=== PATIENT | female | born 1990 ===

== ENCOUNTER 2020-04-06 09:27 | Outpatient (REF) | payer OTHER, SELFPAY ==
[2020-04-06 09:50] LABS: COVID-19 Test Negative (Negative)
== END 2020-04-06 09:28 | disposition home or self-care (01) ==
LOC: HO.EMPCOV 09:27
PROVIDERS: PCP Internal Medicine; Visit Provider Internal Medicine
DX: Z20.828 Contact with and (suspected) exposure to other viral communicable diseases (principal)
CPT/HCPCS: 87635; C9803

== ENCOUNTER 2020-05-24 09:27 | Outpatient (REF) | payer OTHER, SELFPAY ==
[2020-05-24 10:05] LABS: COVID-19 Test Negative (Negative)
== END 2020-05-24 09:28 | disposition home or self-care (01) ==
LOC: HO.EMPCOV 09:27
PROVIDERS: Visit Provider Internal Medicine
DX: Z20.828 Contact with and (suspected) exposure to other viral communicable diseases (principal)
CPT/HCPCS: 87635; C9803

== ENCOUNTER 2020-06-04 09:16 | Outpatient (REF) | payer OTHER, SELFPAY ==
[2020-06-04 09:30] LABS: COVID-19 Test Positive (Negative); IDNOW Serial# 55D5AD1C
== END 2020-06-04 09:17 | disposition home or self-care (01) ==
LOC: HO.EMPCOV 09:16
PROVIDERS: Visit Provider Internal Medicine
DX: Z20.822 Contact with and (suspected) exposure to COVID-19 (principal)
CPT/HCPCS: 36415; 87635; C9803

== ENCOUNTER 2020-10-28 09:06 | Outpatient (REF) | payer OTHER, SELFPAY ==
[2020-10-29 08:58] LABS: COVID-19 Test Negative (Negative)
== END 2020-10-28 09:07 | disposition home or self-care (01) ==
LOC: HO.LAB 09:06
PROVIDERS: Visit Provider Internal Medicine
DX: Z20.822 Contact with and (suspected) exposure to COVID-19 (principal)
CPT/HCPCS: 36415; 87635

== ENCOUNTER 2021-01-31 11:23 | Outpatient (REF) | payer OTHER, SELFPAY ==
[2021-01-31 15:51] LABS: CT PCR NOT DETECTED (Not Detect.); NG PCR NOT DETECTED (Not Detect.)
[2021-02-01 11:29] LABS: BV Int Neg Control Negative (Negative); BV Int Pos Control Positive (Positive)
[2021-02-09 07:27] LABS: HPV 16 RNA NOT DETECTED (NOT DETECTED); HPV mRNA E6/E7 rflx Detected (Not Detected)
== END 2021-01-31 11:24 | disposition home or self-care (01) ==
LOC: HO.LAB 11:23
PROVIDERS: PCP Internal Medicine; Visit Provider Obstetrics & Gynecology
DX: Z01.411 Encounter for gynecological examination (general) (routine) with abnormal findings (principal); Z11.3 Encounter for screening for infections with a predominantly sexual mode of transmission; D06.9 Carcinoma in situ of cervix, unspecified; N76.0 Acute vaginitis; B96.89 Other specified bacterial agents as the cause of diseases classified elsewhere
CPT/HCPCS: 87480; 87491; 87510; 87591; 87624; 87625; 87660; 88142

== ENCOUNTER 2021-05-09 14:17 | Outpatient (REF) | payer OTHER, SELFPAY ==
[2021-05-09 15:09] LABS: Influenza A PCR NEGATIVE (Negative); Influenza B PCR NEGATIVE (Negative); Resp Syncy Virus RNA Qual PCR NEGATIVE (Negative); SARS COV2 PCR INHOUSE NEGATIVE (Negative)
== END 2021-05-09 14:18 | disposition home or self-care (01) ==
LOC: HO.LNP 14:17
PROVIDERS: Visit Provider Physician Assistant
DX: R09.89 Other specified symptoms and signs involving the circulatory and respiratory systems (principal); H66.90 Otitis media, unspecified, unspecified ear; Z20.822 Contact with and (suspected) exposure to COVID-19
CPT/HCPCS: 0241U

== ENCOUNTER 2021-05-28 09:10 | Outpatient (REF) | payer OTHER, SELFPAY ==
[2021-05-28 11:37] LABS: Binax Internal Control QC Valid; Binax Lot number: 9864; Binax Now Covid-19 Ag Negative (Negative)
== END 2021-05-28 09:11 | disposition home or self-care (01) ==
LOC: HO.LAB 09:10
PROVIDERS: Visit Provider Internal Medicine
DX: Z20.822 Contact with and (suspected) exposure to COVID-19 (principal)
CPT/HCPCS: 36415; C9803

== ENCOUNTER 2021-06-13 09:36 | Outpatient (REF) | payer OTHER, SELFPAY | END 2021-06-13 09:37 | disposition home or self-care (01) | LOC: HO.LAB 09:36 | PROVIDERS: PCP Internal Medicine; Visit Provider Obstetrics & Gynecology | DX: D06.9 Carcinoma in situ of cervix, unspecified (principal) | CPT/HCPCS: 57454; 88305; 88341; 88342; 88360 ==

== ENCOUNTER 2021-07-10 09:19 | Day surgery (SDC) | payer OTHER, SELFPAY ==
--- NOTE | 2021-07-09 11:38 | HO.ANESPROP2 ---
Documented by User: Madelyn Lopez NP 07/09/21 11:38 HPI - Anesthesia Eval Consult details Narrative: 31yo F for LEEP Cone with Post Cone ECC PMFSH Active Problems Active Problems: All Active Problems (Updated 05/09/21 @ 11:25 by Joanne Kelly PA-C) Otitis media (Acute) Bacterial vaginosis (Acute) TASH III (cervical intraepithelial neoplasia grade III) with severe dysplasia (Acute) Social History Social History Alcohol intake: current Patient Tobacco Use Status: Former Tobacco user Use of substances other than those prescribed or required for medical reasons: No Are you DNR?: No Advance Directives: No Advance Directives Information Provided: Yes Recently lost weight without trying: No Nutrition Risks: No Nutritional Risk Meds Allergies Allergy/AdvReac Type Severity Reaction Status Date / Time chlorpheniramine Allergy Unknown HIVES Verified 05/09/21 11:03 [From TYLENOL ALLERGY SINUS CON PACK] diphenhydramine Allergy Unknown HIVES Verified 05/09/21 11:03 [From TYLENOL ALLERGY SINUS CON PACK] From TYLENOL ALLERGY SINUS Allergy Unknown HIVES Uncoded 02/09/20 17:41 CON PACK Tylenol Sinus Allergy Unknown hives Uncoded 08/02/19 00:00 Home Medications Medication Instructions Recorded Confirmed Last Taken Type levonorgestrel 20 mcg/24 hours (7 INTRAUTERINE 01/31/21 Unknown History yrs) 52 mg intrauterine device (Mirena) acetaminophen 325 mg tablet 325 mg PO QID PRN 07/10/21 07/10/21 07/10/21 History (Tylenol) Exam Exam Date and Time: July 09, [id number] Assessment and Plan Assessment Anesthesia Assessment: Chart Reviewed Documented by User: Kathy Farah MD 07/10/21 10:28 PMFSH Past Medical History Functional capacity: bed bound Surgical History History of Problems with Anesthesia: No Social History Social History Alcohol intake: current Patient Tobacco Use Status: Former Tobacco user Use of substances other than those prescribed or required for medical reasons: No Are you DNR?: No Advance Directives: No Advance Directives Information Provided: Yes Recently lost weight without trying: No Nutrition Risks: No Nutritional Risk Meds Allergies Allergy/AdvReac Type Severity Reaction Status Date / Time chlorpheniramine Allergy Unknown HIVES Verified 05/09/21 11:03 [From TYLENOL ALLERGY SINUS CON PACK] diphenhydramine Allergy Unknown HIVES Verified 05/09/21 11:03 [From TYLENOL ALLERGY SINUS CON PACK] From TYLENOL ALLERGY SINUS Allergy Unknown HIVES Uncoded 02/09/20 17:41 CON PACK Tylenol Sinus Allergy Unknown hives Uncoded 08/02/19 00:00 Home Medications Medication Instructions Recorded Confirmed Last Taken Type levonorgestrel 20 mcg/24 hours (7 INTRAUTERINE 01/31/21 Unknown History yrs) 52 mg intrauterine device (Mirena) acetaminophen 325 mg tablet 325 mg PO QID PRN 07/10/21 07/10/21 07/10/21 History (Tylenol) Exam Airway Mallampati Class: II TM Dist: >3cm Neck ROM: Full Loose/Missing/Broken Teeth: No Heart: RRR Lungs: CTA Assessment and Plan Final Anesthetic Review History of Problems with Anesthesia: No NPO: Yes ASA Class: II Final Preanesthetic Review: Meds/Allgs Chart Reviewed, Consent Obtained/Reviewed and Anes Risks/Benef Reviewed Patient Risk: Low Procedure Risk: Low Anesthetic Plan Anesthetic Plan: GA Disposition: Standard PACU
[2021-07-10] VITALS (7 sets, daily range): BP systolic 95–105; BP diastolic 50–66; PULSE 54–83; RESP 16–18; TEMP 36.5–36.8; O2SAT 96–100; BMI 39.9
[2021-07-10 09:53] LABS: UPreg QC Valid YES; Urine Pregnancy NEGATIVE (NEGATIVE)
[2021-07-10] MEDS: Lactated Ringers 1,000 ML 100 ML IVCONT (10:06)
--- NOTE | 2021-07-10 11:10 | MHC.SHP ---
Pre-Procedural Eval Section A Date of Service: 07/10/21 The patient is an INPATIENT: No Changes since office visit: No Cold of Flu in the past 2 weeks, No New Medical Problems, No Changes in Medication and No Patient answered all questions The History & Physical has been completed within 30 days and I have reviewed it.: Yes Section B Chief Complaint: C1N3 Allergies: Allergies Allergy/AdvReac Type Severity Reaction Status Date / Time chlorpheniramine Allergy Unknown HIVES Verified 05/09/21 11:03 [From TYLENOL ALLERGY SINUS CON PACK] diphenhydramine Allergy Unknown HIVES Verified 05/09/21 11:03 [From TYLENOL ALLERGY SINUS CON PACK] From TYLENOL ALLERGY SINUS Allergy Unknown HIVES Uncoded 02/09/20 17:41 CON PACK Tylenol Sinus Allergy Unknown hives Uncoded 08/02/19 00:00 Plan Diagnosis/Plan: Unchanged I have reviewed the history and physical and performed a pertinent physical examination on my patient. No changes have occurred unless specified.
--- NOTE | 2021-07-10 11:41 | P.BOP_ITS ---
Brief Operative Note Date of Service: 07/10/21 Pre-op diagnosis: TASH 3 Post-op diagnosis: same Procedure: LEEP CONE with post CONE ECC Surgeon: Mirza Pemberton MD Anesthesia: MAC, local and other (Paracervical block) Was an Team Primary Care Physician used for this Procedure?: No Estimated blood loss (mL): 0 Pathology: other (Ant+post Cerv lip, Endocx, Post cone ECC) Condition: stable Disposition: other (Home)
--- NOTE | 2021-07-10 11:42 | W.PM.OPN ---
Operative Note Operative Note Date of Service: 07/10/21 Narrative: Preop diagnosis: TASH 3 Operation: LEEP Cone with post cone ECC Post op diagnosis: same Anesthesia: paracervical block, MAC Complications: none Pathology: Anterior and Posterior cervical lip with endocervix & post cone ECC QBL: minimal Procedure: The patient was put in the dorsal lithotomy position, was prepped and draped in the usual sterile fashion. A sterile speculum was inserted inside the patient vagina. Using Lugol solution the cervix with Dyed with Lugol solution to identifiy the abnormal demarcating line. 10 cc of Marcaine0.5% with epinephrine were given at 2,4 , 8, and 10 o'clock. Using a medium-size loop wire, the anterior cervical lip was excised followed by the posterior cervical lip and endocervix, post cone ECC was done afterwards. Hemostasis was assured using cautery and Monsel solution. All instruments were taken out of the patient's vaginal cavity. the patient tolerated the procedure well and was discharged home with the following instructions: call if temperature is above 100.4, vaginal bleeding, abdominal pain or nausea or vomiting. Follow-up in the office in 2 weeks for postop visit
[2021-07-10] MEDS: oxyCODONE HCl Immed Release 5 MG TABLET PO (12:44)
== END 2021-07-10 13:25 | disposition home or self-care (01) ==
PROVIDERS: Nurse Practitioner; PCP Internal Medicine; Visit Provider Obstetrics & Gynecology
PROC: 0UBC7ZZ Excision of Cervix, Via Natural or Artificial Opening (ICD-10-PCS; CPT 57522; principal; 2021-07-10 11:00)
DX: D06.9 Carcinoma in situ of cervix, unspecified (principal); Z79.899 Other long term (current) drug therapy; Z88.8 Allergy status to other drugs, medicaments and biological substances; Z87.891 Personal history of nicotine dependence
CPT/HCPCS: 57522; 81025; 88305; 88307; 88342; 88360; J1100; J2250; J2405; J3010

== ENCOUNTER → 2021-07-16 11:30 | Outpatient (BNVA) | payer OTHER, SELFPAY | PROVIDERS: PCP Internal Medicine; Visit Provider Obstetrics & Gynecology ==

== ENCOUNTER → 2021-07-29 12:44 | Outpatient (BNVA) | payer OTHER, SELFPAY | PROVIDERS: Visit Provider Obstetrics & Gynecology ==

== ENCOUNTER → 2021-08-01 15:40 | Outpatient (BNVA) | payer OTHER, SELFPAY | PROVIDERS: Visit Provider Obstetrics & Gynecology ==

== ENCOUNTER → 2021-08-20 11:56 | Outpatient (BNVA) | payer OTHER, SELFPAY | PROVIDERS: PCP Internal Medicine; Visit Provider Obstetrics & Gynecology | DX: D06.9 Carcinoma in situ of cervix, unspecified (principal) ==

== ENCOUNTER 2021-08-23 10:40 | Day surgery (SDC) | payer OTHER, SELFPAY ==
[2021-08-19 10:46] VITALS: BMI 39.9
--- NOTE | 2021-08-21 13:44 | HO.ANESPROP2 ---
Documented by User: Madelyn Lopez NP 08/21/21 13:46 HPI - Anesthesia Eval Consult details Narrative: 31yo F for LEEP s/p Leep 06/2021 with GA-LMA 4 [facility] Active Problems Active Problems: All Active Problems (Updated 05/09/21 @ 11:25 by Joanne Kelly PA-C) Otitis media (Acute) Bacterial vaginosis (Acute) TASH III (cervical intraepithelial neoplasia grade III) with severe dysplasia (Acute) Surgical History History of Problems with Anesthesia: No Social History Social History Alcohol intake: current Alcohol intake frequency: holidays/special occasions only Patient Tobacco Use Status: Never used Tobacco Use of substances other than those prescribed or required for medical reasons: Yes Substance Use Type Other:: quit 1 year ago Are you DNR?: No Advance Directives: No Advance Directives Information Provided: Yes Recently lost weight without trying: No Patient : No (ucg negative) Meds Allergies Allergy/AdvReac Type Severity Reaction Status Date / Time chlorpheniramine Allergy Unknown HIVES Verified 05/09/21 11:03 [From TYLENOL ALLERGY SINUS CON PACK] diphenhydramine Allergy Unknown HIVES Verified 05/09/21 11:03 [From TYLENOL ALLERGY SINUS CON PACK] From TYLENOL ALLERGY SINUS Allergy Unknown HIVES Uncoded 02/09/20 17:41 CON PACK Tylenol Sinus Allergy Unknown hives Uncoded 08/02/19 00:00 Home Medications Medication Instructions Recorded Confirmed Last Taken Type levonorgestrel 20 mcg/24 hours (7 INTRAUTERINE 01/31/21 Unknown History yrs) 52 mg intrauterine device (Mirena) Exam Exam Date and Time: August 21, 2021 1344 Height,Weight and Vital Signs: Height 4 ft 11 in Weight 89.81 kg Assessment and Plan Assessment Anesthesia Assessment: Chart Reviewed Final Anesthetic Review History of Problems with Anesthesia: No Documented by User: Emi Heath MD 08/23/21 12:01 [facility] Family History Family history of problems with anesthesia: No Social History Social History Alcohol intake: current Alcohol intake frequency: holidays/special occasions only Patient Tobacco Use Status: Never used Tobacco Use of substances other than those prescribed or required for medical reasons: Yes Substance Use Type Other:: quit 1 year ago Are you DNR?: No Advance Directives: No Advance Directives Information Provided: Yes Recently lost weight without trying: No Patient : No (ucg negative) Meds Allergies Allergy/AdvReac Type Severity Reaction Status Date / Time chlorpheniramine Allergy Unknown HIVES Verified 05/09/21 11:03 [From TYLENOL ALLERGY SINUS CON PACK] diphenhydramine Allergy Unknown HIVES Verified 05/09/21 11:03 [From TYLENOL ALLERGY SINUS CON PACK] From TYLENOL ALLERGY SINUS Allergy Unknown HIVES Uncoded 02/09/20 17:41 CON PACK Tylenol Sinus Allergy Unknown hives Uncoded 08/02/19 00:00 Home Medications Medication Instructions Recorded Confirmed Last Taken Type levonorgestrel 20 mcg/24 hours (7 INTRAUTERINE 01/31/21 Unknown History yrs) 52 mg intrauterine device (Mirena) Exam Airway Mallampati Class: II TM Dist: >3cm Neck ROM: Full Assessment and Plan Assessment Anesthesia Assessment: Anesthesia Plan Discussed Final Anesthetic Review Family History of Problems with Anesthesia: No NPO: Yes ASA Class: II Final Preanesthetic Review: No Changes in Pt Med Stat, Meds/Allgs Chart Reviewed, Consent Obtained/Reviewed and Anes Risks/Benef Reviewed Patient Risk: Low Procedure Risk: Low Anesthetic Plan Anesthetic Plan: GA Disposition: Standard PACU
[2021-08-23] VITALS (7 sets, daily range): BP systolic 97–108; BP diastolic 51–62; PULSE 66–79; RESP 16–18; TEMP 36.3–37.5; O2SAT 97–98
[2021-08-23 11:33] LABS: UPreg QC Valid YES; Urine Pregnancy NEGATIVE (NEGATIVE)
[2021-08-23] MEDS: Lactated Ringers 1,000 ML 100 ML IVCONT (12:00)
--- NOTE | 2021-08-23 12:13 | MHC.SHP ---
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 No changes have occurred unless specified.
--- NOTE | 2021-08-23 12:53 | PM.OP ---
Brief Operative Note Date of Service: 08/23/21 Pre-op diagnosis: TASH 2-3 WITH POSITIVE MARGINS Post-op diagnosis: same Procedure: LEEP CONE with post CONE ECC Surgeon: Mirza Pemberton MD Anesthesia: local and other (Paracervical block) Was an Virtual Classroom Manager used for this Procedure?: No Estimated blood loss (mL): 0 Pathology: other (Cervical cone, Endocx, Post cone ECC) Condition: stable Disposition: other (Home)
--- NOTE | 2021-08-23 12:54 | P.OP_ITS ---
Operative Note Operative Note Date of Service: 08/23/21 Narrative: Preop diagnosis: TASH 2-3 with + margins Operation: LEEP Cone with post cone ECC Post op diagnosis: same Anesthesia: paracervical block, mac Complications: none Pathology: Anterior and Posterior cervical lip with endocervix & post cone ECC QBL: minimal Procedure: The patient was put in the dorsal lithotomy position, was prepped and draped in the usual sterile fashion. A sterile speculum was inserted inside the nava ent vagina. Using Lugol solution the cervix with Dyed with Lugol solution to identifiy the abnormal demarcating line. 10 cc of Marcaine0.5% with epinephrine were given at 2,4 , 8, and 10 o'clock. Using a medium-size loop wire, the cervical cone was excised followed by the endocervix, taken in 2 passes , post cone ECC was done afterwards. Hemostasis was assured using cautery and Monsel solution. All instruments were taken out of the patient's vaginal cavity. the patient tolerated the procedure well and was discharged home with the following instructions: call if temperature is above 100.4, vaginal bleeding, abdominal pain or nausea or vomiting. Follow-up in the office in 2 weeks for postop visit
[2021-08-23] MEDS: fentaNYL citrate/PF 100 MCG/2 ML VIAL 50 MCG IVPUSH ×2 (13:16→13:29)
[2021-08-23] MEDS: oxyCODONE HCl Immed Release 5 MG TABLET PO (13:16)
== END 2021-08-23 14:20 | disposition home or self-care (01) ==
PROVIDERS: PCP Internal Medicine; Visit Provider Obstetrics & Gynecology
PROC: 0UBC7ZZ Excision of Cervix, Via Natural or Artificial Opening (ICD-10-PCS; CPT 57522; principal; 2021-08-23 13:00)
DX: D06.9 Carcinoma in situ of cervix, unspecified (principal); Z88.6 Allergy status to analgesic agent
CPT/HCPCS: 57522; 81025; 88305; 88307; 88342; 88360; J1100; J2250; J2405; J3010

== ENCOUNTER → 2021-09-05 15:15 | Outpatient (BNVA) | payer OTHER, SELFPAY | PROVIDERS: PCP Internal Medicine; Visit Provider Obstetrics & Gynecology | DX: Z13.89 Encounter for screening for other disorder (principal) ==

== ENCOUNTER → 2021-12-25 15:01 | Outpatient (BNVA) | payer OTHER, SELFPAY | PROVIDERS: PCP Internal Medicine; Visit Provider Advanced Practice Midwife | DX: Z30.432 Encounter for removal of intrauterine contraceptive device (principal); T83.9XXA Unspecified complication of genitourinary prosthetic device, implant and graft, initial encounter | CPT/HCPCS: 58301 ==

== ENCOUNTER 2021-12-26 10:29 | Outpatient (REF) | payer OTHER, SELFPAY ==
[2021-12-26 10:47] LABS: Appearance Urine CLOUDY; Color Urine YELLOW; Glucose Urine UA NEG (NEG); Leukocyte Esterase Urine 2+ (NEG); Nitrite Urine NEG (NEG); PH 6.5 (5.0-8.0); Specific Gravity - Urine 1.015 (1.005-1.025); Urine Blood TRACE (NEG); Urine Ketones NEG (NEG); Urine Protein TRACE MG/DL (NEG-TRACE)
[2021-12-26 11:11] LABS: Bacteria Urine 1+ /LPF; Mucus Urine TRACE /LPF; Squamous Epithelial Cell Urine 1+ /LPF
== END 2021-12-26 10:30 | disposition home or self-care (01) ==
LOC: HO.LAB 10:29
PROVIDERS: PCP Internal Medicine; Visit Provider Advanced Practice Midwife
DX: R30.0 Dysuria (principal)
CPT/HCPCS: 81001; 87086

== ENCOUNTER 2022-04-30 09:55 | Outpatient (REF) | payer OTHER, SELFPAY ==
[2022-04-30 14:00] LABS: Hematocrit 39.2 % (37.0-47.0); Hemoglobin 12.8 g/dl (12.0-16.0); Mean Corpuscular HGB Conc 32.7 g/dl (31.0-35.0); Mean Corpuscular Hemoglobin 28.6 pg (27.0-33.0); Mean Corpuscular Volume 87.5 fL (80.0-98.0); Mean Platelet Volume 9.9 fL (9.4-12.3); Platelet Count 391 X10*3/uL (160-400); Red Blood Count 4.48 X10*6/uL (4.20-5.50); Red Cell Distribution Width 12.3 % (11.0-16.0); White Blood Count 9.1 X10*3/uL (4.8-10.8)
[2022-04-30 15:03] LABS: TSH reflex Free T4 1.68 uIU/mL (0.32-4.0)
== END 2022-04-30 09:56 | disposition home or self-care (01) ==
LOC: HO.LAB 09:55
PROVIDERS: Visit Provider Obstetrics & Gynecology
DX: D64.9 Anemia, unspecified (principal)
CPT/HCPCS: 36415; 84443; 85027

== ENCOUNTER 2022-04-30 09:58 | Outpatient (REF) | payer OTHER, SELFPAY ==
[2022-05-03 22:04] LABS: HPV mRNA E6/E7 Not Detected (Not Detected)
== END 2022-04-30 09:59 | disposition home or self-care (01) ==
LOC: HO.LNP 09:58
PROVIDERS: Visit Provider Obstetrics & Gynecology
DX: Z01.419 Encounter for gynecological examination (general) (routine) without abnormal findings (principal)
CPT/HCPCS: 87624; 88142

== ENCOUNTER 2022-07-21 09:25 | Outpatient (REF) | payer OTHER, SELFPAY ==
[2022-07-21 12:18] LABS: Hemoglobin 12.9 g/dl (12.0-16.0); Mean Corpuscular HGB Conc 32.3 g/dl (31.0-35.0); Mean Corpuscular Hemoglobin 28.1 pg (27.0-33.0); Mean Corpuscular Volume 87.1 fL (80.0-98.0); Mean Platelet Volume 10.3 fL (9.4-12.3); Platelet Count 353 X10*3/uL (160-400); Red Blood Count 4.59 X10*6/uL (4.20-5.50); Red Cell Distribution Width 12.5 % (11.0-16.0); White Blood Count 5.6 X10*3/uL (4.8-10.8)
[2022-07-21 12:27] LABS: Alanine Aminotransferase 18 U/L (0-31); Albumin Level 4.3 g/dL (3.5-5.0); Alkaline Phosphatase 69 U/L (39-117); Anion Gap 11 (12-20); Aspartate Amino Transferase 19 U/L (5-31); Bilirubin Total 0.6 mg/dL (0.0-1.0); Blood Urea Nitrogen 13 mg/dL (9-16); Calcium 9.2 mg/dL (8.4-10.2); Carbon Dioxide 24 mmol/L (22-29); Chloride 113 mmol/L (96-108); Cholesterol 203 mg/dL; Estimated Glomerular Filt Rate > 60; Glucose Fasting 88 mg/dL (60-99); HDL Cholesterol 45 mg/dL; LDL Cholesterol Calculated 147 mg/dl; Potassium 4.5 mmol/L (3.3-5.1); Sodium 143 mmol/L (135-145); TSH reflex Free T4 1.54 uIU/mL (0.32-4.0); Total Protein 7.1 g/dL (6.5-8.0); Triglycerides 59 mg/dL
== END 2022-07-21 09:26 | disposition home or self-care (01) ==
LOC: HO.WFDLDS 09:25
PROVIDERS: Visit Provider Hospitalist
DX: Z00.00 Encounter for general adult medical examination without abnormal findings (principal); M54.50 Low back pain, unspecified
CPT/HCPCS: 36415; 80053; 80061; 84443; 85027

== ENCOUNTER 2022-07-22 12:45 | Outpatient (REF) | payer OTHER, SELFPAY ==
--- NOTE | ~2022-07-22 | XR_ITS ---
EXAMINATION: XR SACRUM AND COCCYX CLINICAL INFORMATION: Sacrococcygeal disorders. COMPARISON: None. TECHNIQUE: 2 views of the sacrum and 2 views of the coccyx were obtained. FINDINGS: There are no fractures. No bone, joint or soft tissue abnormality is demonstrated. There is mild sublux sacrococcygeal joint, likely old. No soft tissue abnormality seen. XR/XR sacrum coccyx min 2V IMPRESSION: Mild posterior subluxed sacrococcygeal joint. No visible acute fracture or lytic process seen.
== END 2022-07-22 12:46 | disposition home or self-care (01) ==
LOC: HO.XRAY 12:45
PROVIDERS: PCP Hospitalist; Visit Provider Hospitalist
DX: G89.29 Other chronic pain (principal); M53.3 Sacrococcygeal disorders, not elsewhere classified
CPT/HCPCS: 72220

== ENCOUNTER 2022-07-30 14:23 | Outpatient (REF) | payer OTHER, SELFPAY ==
[2022-08-01 11:43] LABS: Varicella IgG Antibody >4000.00 index
== END 2022-07-30 14:24 | disposition home or self-care (01) ==
LOC: HO.LAB 14:23
PROVIDERS: PCP Hospitalist; Visit Provider Hospitalist
DX: Z01.84 Encounter for antibody response examination (principal)
CPT/HCPCS: 36415; 86787

== ENCOUNTER 2023-02-09 08:46 | Outpatient (AMB) | payer OTHER, SELFPAY ==
[2023-02-09 08:51] VITALS: BP 110/76; PULSE 100; TEMP 36.9; O2SAT 95; BMI 40.5
--- NOTE | 2023-02-09 08:51 | MHC.OFFWIV ---
Intake Vital Signs 02/09/23 08:51 Height 5 ft Weight 207 lb 8 oz BMI 40.5 BP 110/76 Blood Pressure Location Rt brachial Position Sitting Pulse 100 Pulse Source Pulse Oximeter Temp 98.5 F Temp Source Oral Pulse Oximetry (%) 95 Oxygen Delivery Method Room Air Intake Visit Reasons: EST/ear infections Intake Note: Patient is here today for both ear pain. Patient Tobacco Use Status: Never used Tobacco Allergies chlorpheniramine [From TYLENOL ALLERGY SINUS CON PACK] Allergy (Unknown, Verified 02/09/23 08:51) HIVES diphenhydramine [From TYLENOL ALLERGY SINUS CON PACK] Allergy (Unknown, Verified 02/09/23 08:51) HIVES From TYLENOL ALLERGY SINUS CON PACK Allergy (Unknown, Uncoded 07/21/22 08:37) HIVES Tylenol Sinus Allergy (Unknown, Uncoded 07/21/22 08:37) hives HPI HPI Comments History of Present Illness Details This is a 32-year-old female with no stated past medical history presenting for evaluation of ear pain. Patient states she had pain in her left ear yesterday evening for which she took Tylenol and woke this morning with right ear pain. Patient states that her left ear pain has resolved. Patient denies having any fevers, chills, sore throat, difficulty swallowing or discharge from her ears bilaterally. Patient has taken two tests for COVID-19 at home which were both negative. 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 Cognitive needs: No Hearing needs: No Vision needs: Yes Female Reproductive History Menstrual Age of Menarche: 12 Review of Systems Const All systems reviewed & are unremarkable except as noted in HPI and below Reports as per HPI, Denies chills, Denies fever(s) and Denies malaise Eyes Reports as per HPI ENT Reports otalgia, Denies hearing loss, Denies mouth pain, Denies nasal congestion, Denies sinus pressure and Denies sore throat Card Denies dyspnea Resp Denies cough and Denies dyspnea Vikram/Lymph Denies lymphadenopathy Physical Exam Vital Signs: Last Vital Signs Temp 98.5 F 02/09/23 08:51 Pulse 100 02/09/23 08:51 BP 110/76 02/09/23 08:51 Pulse Ox 95 02/09/23 08:51 Oxygen Delivery Method Room Air 02/09/23 08:51 BMI result Body Mass Index 40.5 Const General: cooperative, healthy appearing, comfortable and no acute distress Nutritional Appearance: well nourished Orientation/consciousness: patient oriented x3 Limitations: no limitations HEENT Head: Yes normal to inspection Ears: hearing grossly normal bilaterally, external ears normal, right TM abnormal (mild bulging with fluid; no erythema or retained foreign body), TM normal on the left and other (canals normal bilaterally) General nose exam: Normal external nose present Face and sinus: Yes normal facial exam Mouth: Normal oral and palatal mucosa present, lip normal and oropharynx normal Teeth and gingiva: dentition normal Throat: Yes posterior oropharynx normal Eyes General: appearance normal, both eyes and all related structures Conjunctivae: conjunctivae normal Pupils: Equal, round and reactive pupils present EOM: EOMs intact bilaterally Resp Effort & Inspection: normal respiratory effort Auscultation: clear to auscultation bilaterally Neuro General: patient oriented x3 Cranial nerves: Yes Equal, round and reactive pupils present Psych Appearance: grossly normal Mental Status: mental status grossly normal Speech and movement: Normal speech and movement present Affect: normal affect Attitude: cooperative Thought content: Normal thought content present Insight: Good insight present (Psych) Assessment & Plan Assessment & Plan (1) Otalgia of right ear: Code(s): H92.01 - Otalgia, right ear Plan: Patient instructed to use ibuprofen 400mg every 4-6 hours as needed for her discomfort and to utilize Flonase/fluticasone nasal spray once daily if her symptoms do not improve over 3-5 days. Coding Level of Care Code Est Pt Level 3 (40108) Diagnoses Otalgia of right ear H92.01 Time Spent (min) 20
== END 2023-02-09 09:08 | disposition home or self-care (01) ==
PROVIDERS: PCP Hospitalist; Visit Provider Physician Assistant
DX: H92.01 Otalgia, right ear (principal)
CPT/HCPCS: 99213

== ENCOUNTER 2023-07-15 08:43 | Outpatient (AMB) | payer OTHER, SELFPAY ==
--- NOTE | 2023-07-15 09:04 | A.OFFVIS_ITS ---
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 Intake Note: No menses since 03/16 Roll Cleaner Required: No Information Interpreted: non-clinical & clinical Licensed Appraiser: Licensed Appraiser Present (Katlyn Molina HELEN) Accompanied by: Self / Same As Patient Allergies chlorpheniramine [From TYLENOL ALLERGY SINUS CON PACK] Allergy (Unknown, Verified 07/15/23 09:27) HIVES diphenhydramine [From TYLENOL ALLERGY SINUS CON PACK] Allergy (Unknown, Verified 07/15/23 09:27) HIVES From TYLENOL ALLERGY SINUS CON PACK Allergy (Unknown, Uncoded 07/15/23 09:27) HIVES Tylenol Sinus Allergy (Unknown, Uncoded 07/15/23 09:27) hives Is last menstrual period known: No HPI HPI Comments History of Present Illness Details Presenting for annual exam. Complaining of amenorrhea over the last 3 months with no associated hair growth or nipple discharge Last Pap/HPV was negative in 05/15 preceded by TASH 2-3 status post LEEP in 09/13 [facility] Surgical History H/O LEEP Family History Paternal Aunt Cervical cancer Social History Household Members: Spouse and Children Housing: House Alcohol intake: current Alcohol intake frequency: holidays/special occasions only Patient Tobacco Use Status: Never used Tobacco e-Cigarette/Vaping Use: Never Used service: No Current occupational status: employed 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[employer] Sexually active: Yes Sexual 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/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 Gender identity: Female Cognitive needs: No Hearing needs: No Vision needs: Yes Female Reproductive History Menstrual Age of Menarche: 12 Date of last pap smear: 05/01/22 Review of Systems Const All systems reviewed & are unremarkable except as noted in HPI and below Card Reports as per HPI Resp Reports as per HPI GI Reports as per HPI and Reports no additional complaints Reports as per HPI Physical Exam Vital Signs: Last Vital Signs BP 122/72 07/15/23 09:23 BMI result Body Mass Index 41.0 Const General: cooperative, healthy appearing and comfortable Chest Chest palpation & inspection: normal inspection of the chest and normal palpation of entire chest wall Breast/axilla inspection: normal inspection of the breasts and normal inspection of the axillae Breast/axilla palpation: normal palpation of the breasts, normal palpation of the axillae and no axillary lymphadenopathy Resp Effort & Inspection: normal respiratory effort Auscultation: clear to auscultation bilaterally Percussion: percussion normal Cardio Palpation: normal PMI Rate: regular rate Rhythm: regular rhythm Heart sounds: no murmurs and no rubs Peripheral pulses: Peripheral pulses 2+ throughout GI Inspection: Yes normal to inspection Palpation (GI): Soft to palpation, nontender, no guarding, not rigid and No hepatosplenomegaly present Percussion: Yes normal to percussion Auscultation: normal bowel sounds Rectal Exam - Female: deferred General: Yes bladder normal to palpation External Female Exam: No lesion Speculum Exam - Vagina: normal appearance of the vagina, normal palpation, norm al vaginal discharge and not erythematous Speculum Exam - Cervix: normal appearance of the cervix and normal palpation Bimanual exam- vagina & uterus: normal bimanual exam, normal palpation, uterine size normal, bladder normal to palpation, consistency normal and normal palpation Bimanual Exam- Adnexa, other: normal adnexae, no masses and no tenderness Assessment & Plan Assessment & Plan (1) Well woman exam: Code(s): Z01.419 - Encounter for gynecological examination (general) (routine) without abnormal findings Plan: Cotesting done. Counseled the patient about the recommended dietary allowance of 1000 mg of Calcium & 600 IU of vitamin D. The patient was instructed to perform monthly self-breast exams and to schedule an annual exam in a year; All questions answered and the patient verbalized understanding. Instructed the patient to schedule annual exam in a year (2) Amenorrhea: Code(s): N91.2 - Amenorrhea, unspecified Plan: UPT done in the office was negative. Discussed with the patient the possible causes of amenorrhea including but not limited to anovulation, thyroid and prolactin disorders, , end organ problems (uterine synechiae), medication side effects and others. The workup includes to start with UPT if negative this will be followed by a progesterone withdrawal test x 5 days if + bleeding this will be followed by TSH, PRL if negative then the diagnosis is anovulation. if no bleeding occurs will treat with Premarin x 21 days followed by Provera if no bleeding occurs will rule out Premature ovarian failure with FSH/LH. Instructions given the patient to schedule a 2 week follow-up appointment Orders: Orders Pap Smear Today Z01.419 - Encounter for gynecological examination (general) (routine) without abnormal findings Medications: New medroxyprogesterone (Provera) 10 mg PO daily 5 tabs 0RF 5 days Coding Level of Care Code Est Pt Prev Care 18-39y(04216) Diagnoses Well woman exam Z01.419 Amenorrhea N91.2
[2023-07-15 09:23] VITALS: BP 122/72; BMI 41.0
== END 2023-07-15 09:48 | disposition home or self-care (01) ==
LOC: HO.HWS 08:43
PROVIDERS: PCP Hospitalist; Visit Provider Obstetrics & Gynecology
DX: Z01.419 Encounter for gynecological examination (general) (routine) without abnormal findings (principal); N91.2 Amenorrhea, unspecified; Z32.02 Encounter for pregnancy test, result negative
CPT/HCPCS: 99395

== ENCOUNTER 2023-07-15 08:43 | Outpatient (REF) | payer OTHER, SELFPAY ==
[2023-07-18 03:59] LABS: HPV mRNA E6/E7 rflx Not Detected (Not Detected)
== END 2023-07-15 08:44 | disposition home or self-care (01) ==
LOC: HO.LNP 08:43
PROVIDERS: PCP Hospitalist; Visit Provider Obstetrics & Gynecology
DX: Z01.419 Encounter for gynecological examination (general) (routine) without abnormal findings (principal); Z11.51 Encounter for screening for human papillomavirus (HPV)
CPT/HCPCS: 81025; 87624; 88142

== ENCOUNTER 2024-05-24 12:50 | Outpatient (AMB) | payer OTHER, SELFPAY ==
--- NOTE | 2024-05-24 12:51 | A.OFFPC_ITS ---
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 Required: No Accompanied by: Self / Same As Patient Allergies chlorpheniramine [From TYLENOL ALLERGY SINUS CON PACK] Allergy (Unknown, Verified 05/24/24 13:05) HIVES diphenhydramine [From TYLENOL ALLERGY SINUS CON PACK] Allergy (Unknown, Verified 05/24/24 13:05) HIVES From TYLENOL ALLERGY SINUS CON PACK Allergy (Unknown, Uncoded 05/24/24 13:05) HIVES Tylenol Sinus Allergy (Unknown, Uncoded 05/24/24 13:05) hives Medication List - Last Reconciled 05/24/24 by Rodrigo Bergman MD medroxyprogesterone (Provera) 10 mg PO daily 5 days Tobacco use date assessed: 05/24/24 Dental Screening Dental Screen Date: 05/24/24 Did you have a dental visit in the last 12 months?: Yes Did you have a dental problem in the last 6 months where you did not have access to dental care?: No Was dental information given to patient?: Patient has dentist HPI Annual Exam HPI Details Patient comes in today for her annual physical examination - patient has been with the practice for a few years now but this is the first time I am seeing patient Patient states that she feels okay except for recurrent left heel pain, which she states has been bothering her for over a year now - thinks that she may have a heel spur She denies any headaches or dizziness Denies any chest pains, no SOB No nausea/vomiting, no abdominal pain No change in bowel habits noted She denies any acute urinary symptoms Adds that she has gained a lot of weight over the past few years and her BMI is now over 40 - would like to have labs done to check her thyroid and if her labs are normal, would like to look into the possibility of starting on some of the GLP-1s to help her lose weight She is up-to-date with her annual pap smear / gynecology exam - was last done in June [address] 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 1. Little interest or pleasure in doing things: not at all 2. Feeling down, depressed, or hopeless: not at all 3. Trouble falling or staying asleep, or sleeping too much: not at all 4. Feeling tired or having little energy: not at all 5. Poor appetite or overeating: not at all 6. Feeling bad about yourself - or that you are a failure or have let yourself o r your family down: not at all 7. Trouble concentrating on things, such as reading the newspaper or watching television: not at all 8. Moving or speaking so slowly that other people could have noticed. Or the opposite - being so fidgety or restless that you have been moving around a lot more than usual: not at all 9. Thoughts that you would be better off or of hurting yourself in some way: not at all Total score: 0 Depression Screening Interpretation: Negative Depression Screening Done: Yes 37889 - PHQ-9 Billing: Yes Source: Developed by Drs. Emilio Wood, Marie Abebe, Luis A bryson nd colleagues, with an educational ro from [employer]. Thrive Questionnaire Date Thrive assessed: 05/24/24 I am a: Patient What is your living situation today?: I have a steady place to live Within the past 12 months, did the food you bought not last and you didn't have the money to get more?: Never true Within the past 12 months, did you worry whether your food would run out before you got money to buy more?: Never true Do you have trouble paying for medicines?: No Do you have trouble getting transportation to medical appointments?: No Do you have trouble paying your heating and electricity bill?: No Do you have trouble taking care of your child, family member or friend?: No Do you have trouble with day-to-day activities such as bathing, preparing meals, shopping, managing finances, etc.?: No Are you currently unemployed and looking for a job?: No Are you interested in more education?: No Please select the resources that you would like help with: None Currently or been in a relationship where the following occur: No concerns reported THRIVE Score: 0 AUDIT C Alcohol Use Questionnaire (AUDIT-C) 1. How often do you have a drink containing alcohol?: Monthly or less 2. How many drinks containing alcohol do you have on a typical day when you are drinking?: 3 or 4 3. How often do you have six or more drinks on one occasion?: Never Total Score: 2 Score Reviewed/Action Taken: Yes YANCI-7 AMB Questionnaire YANCI-7 Date YANCI - 7 assessed: 05/24/24 Feeling nervous, anxious, or on edge: 0 = Not at all Not being able to stop or control worryin = Not at all Worrying too much about different things: 0 = Not at all Trouble relaxin = Not at all Being so restless that it is hard to sit still: 0 = Not at all Becoming easily annoyed or irritable: 0 = Not at all Feeling afraid as if something awful might happen: 0 = Not at all Total YANCI-7 score (0-4 normal; 5-9 mild; 10-14 moderate; 15-21 severe): 0 Source: Developed by Drs. Emilio Wood, Marie Abebe, Luis A Joshua and colleagues, with an educational ro from [employer]. Review of Systems Const Denies chills, Denies fatigue, Denies fever(s), Denies headache(s) and Denies malaise Eyes Denies blurry vision, Denies change in vision, Denies irritation and Denies itchy eyes ENT Denies dysphagia, Denies dizziness, Denies otalgia, Denies headache(s), Denies nasal congestion, Denies neck pain, Denies odynophagia, Denies sinus pain and Denies sore throat Card Denies chest pain, Denies rapid heart rate, Denies irregular heart rhythm, Denies palpitations and Denies dyspnea Resp Denies chest congestion, Denies cough, Denies dyspnea and Denies wheezing GI Denies abdominal pain, Denies bloating, Denies constipation, Denies dysphagia, Denies heartburn, Denies diarrhea, Denies nausea, Denies odynophagia and Denies vomiting Denies hematuria, Denies urinary frequency, Denies dysuria, Denies urinary incontinence and Denies urinary urgency Musc Details: (+) recurrent left heel pain; chronic pain over her coccygeal / tailbone area Denies back pain, Denies arthralgias, Denies joint swelling, Denies muscle weakness and Denies neck pain Skin/Breast Denies breast pain, Denies breast mass, Denies change in pigmentation, Denies lesions, Denies rash and Denies unusual bruising Neuro Denies dizziness, Denies headache(s) and Denies paresthesias Psych Denies anxiety and Denies depression Endo Denies fatigue and Denies palpitations Vikram/Lymph Denies easy bruising Aller/Immun Denies itchy eyes and Denies wheezing Physical exam (Primary Care) Vital Signs: Last Vital Signs Pulse 80 05/24/24 12:52 BP 102/60 05/24/24 12:52 Pulse Ox 97 05/24/24 12:52 Oxygen Delivery Method Room Air 05/24/24 12:52 BMI result Body Mass Index 41.2 Tobacco/Smoking Status: Tobacco use Status Tobacco use date assessed 05/24/24 05/24/24 12:59 Patient Tobacco Use Status Never used Tobacco 05/24/24 12:59 e-Cigarette/Vaping Use Never Used 05/24/24 12:59 PHQ-9: PHQ-9 Score PHQ-9: Total score 0 05/24/24 13:52 Depression Screening Interpretation: Negative Thrive Assessment: Date of Thrive Assessment Date Thrive assessed 05/24/24 05/24/24 12:59 Currently or been in a relationship where the following occur: No concerns reported Const General: no acute distress, alert and awake Orientation/consciousness: patient oriented x3 HENMT Head: Yes normocephalic and Yes atraumatic Ears: external ears normal, TM's normal bilaterally and EAC's normal General nose exam: No nasal discharge present Face and sinus: Yes normal facial exam and Yes sinuses nontender Teeth and gingiva: dentition normal Throat: Yes posterior oropharynx normal and Yes tonsils normal (no TP congestion) Eyes Eyelids: Yes eyelids normal Conjunctivae: conjunctivae normal Pupils: Equal, round and reactive pupils present EOM: EOMs intact bilaterally Neck Neck: Yes supple and No lymphadenopathy Thyroid: Thyroid normal Resp Auscultation: clear to auscultation bilaterally, no rales and no wheezes Cardio Rate: regular rate Rhythm: regular rhythm Heart sounds: no murmurs GI Palpation (GI): Soft to palpation, nontender and No hepatosplenomegaly present Auscultation: normal bowel sounds General: Yes no CVA tenderness Back/Spine/Pelvis Back: no CVA tenderness Thoracic/Lumbar Spine: thoracic and lumbar spine normal to inspection Coccyx: Coccyx tenderness present on direct palpation Skin Lesions: no lesions Rashes: no rashes Neuro General: patient oriented x3, moves all extremities, no focal motor deficits and CN's II-XI intact bilaterally Cranial nerves: Yes Equal, round and reactive pupils present Cognition (Neuro): normal cognition Gait exam (Neuro): Normal gait present Extrem General: Yes no clubbing, cyanosis or edema Left lower extremity: foot Details: tenderness Location: of the calcaneus Details: point tenderness Coding Level of Care Code Est Pt Prev Care 18-39y(13384) Diagnoses Annual physical exam Z00.00 Pure hypercholesterolemia E78.00 Pain of left heel M79.672 Chronic coccygeal pain M53.3; G89.29 TASH III (cervical intraepithelial neoplasia grade III) with severe dysplasia D06.9 Obesity, Class III, BMI 40-49.9 (morbid obesity) E66.01 Additional Codes PHQ-9 - 04492 - PHQ-9 Billing: Yes ([id number]) Assessment & Plan Assessment & Plan (1) Annual physical exam: Code(s): Z00.00 - Encounter for general adult medical examination without abnormal findings Category: Medical Plan: Check labs She is up-to-date with her yearly pap smear/gynecology exam (last done in June 2023) - she see Dr. Pemberton for this (2) Pure hypercholesterolemia: Code(s): E78.00 - Pure hypercholesterolemia, unspecified Category: Medical Plan: Have reminded patient that her cholesterol level was high when they were last checked in early 2022 Reinforced low cholesterol diet Will have patient recheck her labs and fasting lipids NATE for follow up (3) Pain of left heel: Code(s): M79.672 - Pain in left foot Category: Medical Plan: As discussed, this is most likely due to a heel spur Will send her for x-rays of the left foot/heel for further evaluation and if her x-rays confirm what we suspect, will them consider referring her to podiatry for further management (4) Chronic coccygeal pain: Code(s): M53.3 - Sacrococcygeal disorders, not elsewhere classified; G89.29 - Other chronic pain Category: Medical Plan: Coccygeal x-rays done back in June 2022 revealed (+) mild posterior subluxed sacrococcygeal joint, with no visible acute fracture or lytic process seen She has been advised to remember to at least use a donut cushion whenever she is sitting for prolonged periods of time and especially if she is doing so on hard surface (5) 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 Pemberton as scheduled for continuing surveillance (6) Obesity, Class III, BMI 40-49.9 (morbid obesity): Code(s): E66.01 - Morbid (severe) obesity due to excess calories Category: Medical Plan: Discussed diet/exercise as tolerated/lose weight Have advised patient to get her labs done first and if these are all normal, can then consider starting her on a trial of GLP-1 to help her lose weight, when appropriate Plan Follow up in 3 to 4 months Orders: Orders Complete Blood Count Auto Diff Today D64.9 - Anemia, unspecified, Z00.00 - Encounter for general adult medical examination without abnormal findings Lipid Panel Today E78.00 - Pure hypercholesterolemia, unspecified, Z00.00 - Encounter for general adult medical examination without abnormal findings TSH reflex Free T4 Today E78.00 - Pure hypercholesterolemia, unspecified, Z00.00 - Encounter for general adult medical examination without abnormal findings Vitamin D 25-OH Total Today E55.9 - Vitamin D deficiency, unspecified, Z00.00 - Encounter for general adult medical examination without abnormal findings Hemoglobin A1c Today R73.01 - Impaired fasting glucose, Z00.00 - Encounter for general adult medical examination without abnormal findings XR foot LT min 3V Today M79.672 - Pain in left foot Comprehensive Mckean. Panel Fast Today E78.00 - Pure hypercholesterolemia, unspecified, Z00.00 - Encounter for general adult medical examination without abnormal findings UA CC w/rflx Micro + Cult Today R30.0 - Dysuria, Z00.00 - Encounter for general adult medical examination without abnormal findings
[2024-05-24 12:52] VITALS: BP 102/60; PULSE 80; O2SAT 97; BMI 41.2
== END 2024-05-24 13:38 | disposition home or self-care (01) ==
PROVIDERS: PCP Hospitalist; Visit Provider Internal Medicine
DX: Z00.00 Encounter for general adult medical examination without abnormal findings (principal); E78.00 Pure hypercholesterolemia, unspecified; E66.01 Morbid (severe) obesity due to excess calories; Z68.41 Body mass index [BMI] 40.0-44.9, adult; M79.672 Pain in left foot; M53.3 Sacrococcygeal disorders, not elsewhere classified; G89.29 Other chronic pain; D06.9 Carcinoma in situ of cervix, unspecified

== ENCOUNTER 2024-05-24 12:50 | Outpatient (REF) | payer OTHER, SELFPAY ==
--- NOTE | ~2024-05-24 | XR_ITS ---
CLINICAL HISTORY: M79.672 - Pain in left foot Three views of the left foot. COMPARISON: None FINDINGS: No ankle joint effusion. Small calcaneal enthesophyte present. Normal tarsometatarsal alignment. Tarsals, metatarsals and phalanges appear intact. No radiopaque foreign body. IMPRESSION: 1. No radiographic evidence of acute injury to the left foot. 2. Small calcaneal enthesophyte present. This document has been electronically signed by: Allan Hutchison MD on 05/24/2024 15:20:27
[2024-05-24 14:00] LABS: MANUAL DIFF FLAG NO
[2024-05-24 14:12] LABS: Basophils Percent Auto 0.4 % (0-2); Eosinophils Absolute Auto 0.2 X10*3/uL (0.0-0.4); Eosinophils Percent Auto 3.4 % (0-4); Hematocrit 39.3 % (37.0-47.0); Imm Gran Abs Auto 0.01 X10*3/uL (0.00-0.03); Imm Gran Pct Auto 0.1 % (0.0-0.4); Lymphocytes Absolute Auto 3.1 X10*3/uL (1.2-4.9); Lymphocytes Percent Auto 42.7 % (20-40); Mean Corpuscular HGB Conc 33.1 g/dl (31.0-35.0); Mean Corpuscular Hemoglobin 27.9 pg (27.0-33.0); Mean Corpuscular Volume 84.3 fL (80.0-98.0); Mean Platelet Volume 9.4 fL (9.4-12.3); Monocytes Absolute Auto 0.5 X10*3/uL (0.1-1.2); Monocytes Percent Auto 6.4 % (2-11); Neutrophils Absolute Auto 3.4 x10*3/uL (2.0-8.3); Platelet Count 362 X10*3/uL (160-400); Red Blood Count 4.66 X10*6/uL (4.20-5.50); Red Cell Distribution Width 12.7 % (11.0-16.0); White Blood Count 7.2 X10*3/uL (4.8-10.8)
[2024-05-24 14:21] LABS: Estimated Average Glucose 103 mg/dL; Hemoglobin A1C 112.6401 umol/L; Hemoglobin A1c % 5.2 % (<6.0); Total Hemoglobin (HGBA1C) 3363.7773 umol/L
[2024-05-24 14:35] LABS: Appearance Urine Clear; Color Urine Yellow; Glucose Urine UA Negative (Negative); Leukocyte Esterase Urine Negative (Negative); Nitrite Urine Negative (Negative); Specific Gravity - Urine >= 1.030 (1.005-1.025); Urine Blood Negative (Negative); Urine Ketones Trace mg/dL (Negative); Urine Protein Negative (Neg-Trace)
[2024-05-24 14:46] LABS: Alanine Aminotransferase 28 U/L (0-31); Albumin Level 4.5 g/dL (3.5-5.0); Alkaline Phosphatase 87 U/L (39-117); Anion Gap 9 (12-20); Aspartate Amino Transferase 22 U/L (5-31); Bilirubin Total 0.3 mg/dL (0.0-1.0); Blood Urea Nitrogen 10 mg/dL (9-16); Calcium 9.2 mg/dL (8.4-10.2); Carbon Dioxide 27 mmol/L (22-29); Chloride 109 mmol/L (96-108); Cholesterol 184 mg/dL (<200); Estimated Glomerular Filt Rate > 60; Glucose Fasting 90 mg/dL (60-99); HDL Cholesterol 42 mg/dL (>40); LDL Cholesterol Calculated 126 mg/dL (<100); Potassium 4.2 mmol/L (3.3-5.1); Sodium 141 mmol/L (135-145); Total Protein 7.8 g/dL (6.5-8.0); Triglycerides 83 mg/dL (<150)
[2024-05-24 15:00] LABS: TSH reflex Free T4 2.48 uIU/mL (0.32-4.0)
== END 2024-05-24 12:51 | disposition home or self-care (01) ==
LOC: HO.XRAY 12:50
PROVIDERS: PCP Internal Medicine; Visit Provider Internal Medicine
DX: Z00.00 Encounter for general adult medical examination without abnormal findings (principal); M79.672 Pain in left foot; D64.9 Anemia, unspecified; E78.00 Pure hypercholesterolemia, unspecified; E55.9 Vitamin D deficiency, unspecified; R73.01 Impaired fasting glucose; R30.0 Dysuria
CPT/HCPCS: 36415; 73630; 80053; 80061; 81003; 82306; 83036; 84443; 85025; 96127

== ENCOUNTER → 2024-05-24 14:06 | Outpatient (BNV) | payer OTHER, SELFPAY | PROVIDERS: PCP Internal Medicine; Visit Provider Radiology Diagnostic Radiology | DX: M77.32 Calcaneal spur, left foot (principal) | CPT/HCPCS: 73630 ==

== ENCOUNTER 2024-11-16 07:56 | Outpatient (REF) | payer OTHER, SELFPAY ==
[2024-11-18 15:08] LABS: HPV Genotype 16 Negative (Negative); HPV Genotype 18 Negative (Negative); HPV High Risk Negative (Negative)
== END 2024-11-16 07:57 | disposition home or self-care (01) ==
LOC: HO.LNP 07:56
PROVIDERS: PCP Hospitalist; Visit Provider Obstetrics & Gynecology
DX: Z01.419 Encounter for gynecological examination (general) (routine) without abnormal findings (principal); N93.9 Abnormal uterine and vaginal bleeding, unspecified; D06.9 Carcinoma in situ of cervix, unspecified; K62.5 Hemorrhage of anus and rectum
CPT/HCPCS: 87626; 88175

== ENCOUNTER 2024-11-16 07:56 | Outpatient (AMB) | payer OTHER, SELFPAY ==
--- OUTSIDE RECORDS SUMMARY | 2024-11-16 08:00 | XMS_ITS | Clinical Summary ---
Author Organization [facility] Address [address] [place] [id number] Phone Care Team Providers Care Quoter Name Role Phone Belkis Childers IZAIAH Primary Care Provider [phone] Immunizations Immunization Administration Dates Next Due DTP 10/06/1995, 3,1991,08/22,1991 Hep B, ped/adol 09/23/1995,11/22/1994,09/22/1994 Hib (PRP-T) 06/25/1992, 2,1991,05/24 IPV 11/02/1995, 3,1991,06/24 MMR 10/06/1995,07/03/1992 Meningococcal Conj (Menactra) MCV4P 01/09/2006 Td (adult) (MBL), 2 Lf tetan us toxoid, PF, adsorbed 10/31/2002 Family History Relation Name Status Comments Brother Alive Brother: Alive and well Father Alive Father: HIV Maternal Grandmother Materna l grandmother: Diabetes mellitus, Asthma Mother Alive Mother: Alive a nd well Other Family history of Deafness, Family history of Sudden /DE under age 55 Paternal Grandmother Paterna l grandmother: Heart disease Social History Tobacco Use Types Packs/Day Years Used Date Smoking Tobacco: Never Assessed Comments Unknown Sex and Gender Information Value Date Recorded Sex Assigned at Not on file Legal Sex Female 4:16 PM EDT Gender Identity Not on file Sexual Orientation Not on file Plan of Treatment Health Maintenance Due Date Last Done Comments DTaP,Tdap,and Td Vaccines (6 - Tdap) 11/01/2002 10/31/2002, 10/06/1995, 11/07/1992, Additional history exists Varicella Vaccines (1 of 2 - 13+ 2-dose series) 02/22/2004 Influenza Vaccines (#1) 2023 COVID-19 Vaccine (2023- season) 2024 HIB Vaccines Completed 06/25/1992, 10/24, 1991, Additional history exists Hepatitis B Vaccines Completed 09/23/1995, 11/22/1994, 09/22/1994 MMR Vaccines Completed 10/06/1995, 07/03/1992 IPV Vaccines Completed 11/02/1995, 10/23, 1991, Additional history exists Meningococcal Vaccine Aged Out 01/09/2006 No cat hollie eligible based on patient's age to complete this topic HPV Vaccines Aged Out No longer eligi ble based on patient's age to complete this topic Hepatitis A Vaccines Aged Out No long er eligible based on patient's age to complete this topic Men B Vaccine Aged Out No longer elig ible based on patient's age to complete this topic Pneumococcal Vaccine Aged Out No long er eligible based on patient's age to complete this topic Care Teams Quoter Relationship Specialty Start Date End Date Belkis Childers NP PCP - General 01/02/17
--- NOTE | 2024-11-16 08:01 | MHC.OFFVIS ---
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 Required: No Information Interpreted: non-clinical & clinical Manager Of Software Development: Manager Of Software Development Present (Katlyn CERVANTES) Accompanied by: Self / Same As Patient Allergies chlorpheniramine (From TYLENOL ALLERGY SINUS CON PACK) Allergy (Unknown, Verified 11/16/24 08:10) HIVES diphenhydramine (From TYLENOL ALLERGY SINUS CON PACK) Allergy (Unknown, Verified 11/16/24 08:10) HIVES From TYLENOL ALLERGY SINUS CON PACK Allergy (Unknown, Uncoded 11/16/24 08:10) HIVES Tylenol Sinus Allergy (Unknown, Uncoded 11/16/24 08:10) hives Is last menstrual period known: Yes Last menstrual period: 11/02/24 [facility] Comments Details: Presenting for annual exam. No complaints. Last Pap/HPV was negative in 07/18 [facility] Medical History (Updated 11/16/24 @ 08:53 by Mirza Pemberton MD) Obesity, Class III, BMI 40-49.9 (morbid obesity) Pure hypercholesterolemia Surgical History (Updated 11/16/24 @ 08:39 by Mirza Pemberton MD) H/O LEEP Family History Paternal Aunt Cervical cancer Social History Household Members: Spouse and Children Housing: House Alcohol intake: current Alcohol intake frequency: holidays/special occasions only Patient Tobacco Use Status: Never used Tobacco e-Cigarette/Vaping Use: Never Used service: No Current occupational status: employed 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[employer] Sexual 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/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 Gender identity: Female Cognitive needs: No Hearing needs: No Vision needs: Yes Female Reproductive History Menstrual Age of Menarche: 12 Date of last menstrual period: 11/02/24 Total pregnancies: 2 Full term: 2 Number of Living Children: 2 Date of last pap smear: 07/15/23 Review of Systems Const All systems reviewed & are unremarkable except as noted in HPI and below Card Reports as per HPI Resp Reports as per HPI GI Reports as per HPI and Reports no additional complaints Reports as per HPI Physical Exam Vital Signs: Last Vital Signs BP 118/76 11/16/24 08:09 BMI result Body Mass Index 39.1 Const General: cooperative, healthy appearing and comfortable Chest Chest palpation & inspection: normal inspection of the chest and normal palpation of entire chest wall Breast/axilla inspection: normal inspection of the breasts and normal inspection of the axillae Breast/axilla palpation: normal palpation of the breasts, normal palpation of the axillae and no axillary lymphadenopathy Resp Effort & Inspection: normal respiratory effort Auscultation: clear to auscultation bilaterally Percussion: percussion normal Cardio Palpation: normal PMI Rate: regular rate Rhythm: regular rhythm Heart sounds: no murmurs and no rubs Peripheral pulses: Peripheral pulses 2+ throughout GI Inspection: Yes normal to inspection Palpation (GI): Soft to palpation, nontender, no guarding, not rigid and No hepatosplenomegaly present Percussion: Yes normal to percussion Auscultation: normal bowel sounds Rectal Exam - Female: deferred General: Yes bladder normal to palpation External Female Exam: No lesion Speculum Exam - Vagina: normal appearance of the vagina, normal palpation, normal vaginal discharge and not erythematous Speculum Exam - Cervix: normal appearance of the cervix and normal palpation Bimanual exam- vagina & uterus: normal bimanual exam, normal palpation, uterine size normal, bladder normal to palpation, consistency normal and normal palpation Bimanual Exam- Adnexa, other: normal adnexae, no masses and no tenderness Assessment & Plan Assessment & Plan (1) Well woman exam: Comment: History of TASH 3 in 2021 Code(s): Z01.419 - Encounter for gynecological examination (general) (routine) without abnormal findings Category: Medical Plan: Cotesting done. Counseled the patient about the recommended dietary allowance of 1000 mg of Calcium & 600 IU of vitamin D. The patient was instructed to perform monthly self-breast exams and to schedule an annual exam in a year; All questions answered and the patient verbalized understanding. Instructed the patient to schedule annual exam in a year (2) Abnormal uterine bleeding (AUB): Comment: History of PCOS Code(s): N93.9 - Abnormal uterine and vaginal bleeding, unspecified Category: Medical Plan: Co testing done, GC and chlamydia taken CBC, TSH, HCG, 17 hydroxyprogesterone, testosterone total and free and pelvic ultrasound ordered. Discussed with the patient the different causes of abnormal bleeding including thyroid disorders, uterine and ovarian pathology, endometrial hyperplasia, carcinoma and other potential causes. Discussed with the patient the work up including CBC (to r/o anemia), TSH, 17 hydroxyprogesterone, testosterone total and free pelvic Ultrasound, endometrial biopsy to r/o endometrial pathology. All questions answered and the patient verbalized understanding. Instructed the patient to schedule an appointment for an endometrial biopsy in 2 weeks. (3) Rectal bleeding: Code(s): K62.5 - Hemorrhage of anus and rectum Category: Medical Plan: Will refer to GI for further management Orders: Orders TSH reflex Free T4 Today N93.9 - Abnormal uterine and vaginal bleeding, unspecified HCG Quantitative Today N93.9 - Abnormal uterine and vaginal bleeding, unspecified Complete Blood Count no Diff Today N93.9 - Abnormal uterine and vaginal bleeding, unspecified US pelvic and transvaginal Today N93.9 - Abnormal uterine and vaginal bleeding, unspecified Testosterone, Free/Total Today N93.9 - Abnormal uterine and vaginal bleeding, unspecified 17 Hydroxyprogesterone Today N93.9 - Abnormal uterine and vaginal bleeding, unspecified Referrals Gastroenterology Referral Z12.11 - Encounter for screening for malignant neoplasm of colon Coding Level of Care Code Est Pt Level 3 (66288) Est Pt Prev Care 18-39y(89838) Diagnoses Well woman exam Z01.419 Abnormal uterine bleeding (AUB) N93.9 Rectal bleeding K62.5
[2024-11-16 08:09] VITALS: BP 118/76; BMI 39.1
== END 2024-11-16 08:56 | disposition home or self-care (01) ==
LOC: HO.HWS 07:56
PROVIDERS: PCP Hospitalist; Visit Provider Obstetrics & Gynecology
DX: Z01.419 Encounter for gynecological examination (general) (routine) without abnormal findings (principal); N93.9 Abnormal uterine and vaginal bleeding, unspecified; K62.5 Hemorrhage of anus and rectum
CPT/HCPCS: 99213; 99395; 99459

== ENCOUNTER 2024-11-30 09:03 | Outpatient (REF) | payer OTHER, SELFPAY ==
[2024-11-30 16:19] LABS: Hematocrit 37.5 % (37.0-47.0); Hemoglobin 12.8 g/dl (12.0-16.0); Mean Corpuscular HGB Conc 34.1 g/dl (31.0-35.0); Mean Corpuscular Hemoglobin 28.5 pg (27.0-33.0); Mean Corpuscular Volume 83.5 fL (80.0-98.0); NRBC Abs Auto 0.000 X10*3/uL (0.0-0.012); NRBC Pct Auto 0.0 /100WBC (0.0-0.2); Platelet Count 363 X10*3/uL (160-400); Red Blood Count 4.49 X10*6/uL (4.20-5.50); White Blood Count 5.6 X10*3/uL (4.8-10.8)
[2024-12-05 18:44] LABS: Testosterone, Free 1.6 pg/mL (0.1-6.4)
== END 2024-11-30 09:04 | disposition home or self-care (01) ==
LOC: HO.LNP 09:03
PROVIDERS: PCP Hospitalist; Visit Provider Obstetrics & Gynecology
DX: N93.9 Abnormal uterine and vaginal bleeding, unspecified (principal); Z87.42 Personal history of other diseases of the female genital tract
CPT/HCPCS: 58100; 83498; 84402; 84403; 84443; 84702; 85027; 88305

== ENCOUNTER 2024-11-30 09:03 | Outpatient (AMB) | payer OTHER, SELFPAY ==
--- NOTE | 2024-11-30 09:09 | MHC.OFFVIS ---
Intake Visit Reasons: EMB Parachute Inspector: Parachute Inspector Present (Hoda) Accompanied by: Self / Same As Patient Allergies chlorpheniramine (From TYLENOL ALLERGY SINUS CON PACK) Allergy (Unknown, Verified 11/30/24 09:09) HIVES diphenhydramine (From TYLENOL ALLERGY SINUS CON PACK) Allergy (Unknown, Verified 11/30/24 09:09) HIVES From TYLENOL ALLERGY SINUS CON PACK Allergy (Unknown, Uncoded 11/16/24 08:10) HIVES Tylenol Sinus Allergy (Unknown, Uncoded 11/16/24 08:10) hives HPI Comments Details: Presenting for EMB [facility] Medical History (Updated 11/16/24 @ 08:53 by Mirza Pemberton MD) Obesity, Class III, BMI 40-49.9 (morbid obesity) Pure hypercholesterolemia Surgical History (Updated 11/16/24 @ 08:39 by Mirza Pemberton MD) H/O LEEP Family History Paternal Aunt Cervical cancer Social History Household Members: Spouse and Children Housing: House Alcohol intake: current Alcohol intake frequency: holidays/special occasions only Patient Tobacco Use Status: Never used Tobacco e-Cigarette/Vaping Use: Never Used service: No Current occupational status: employed 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[employer] Sexual 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/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 Gender identity: Female Cognitive needs: No Hearing needs: No Vision needs: Yes Female Reproductive History Menstrual Age of Menarche: 12 Review of Systems Const All systems reviewed & are unremarkable except as noted in HPI and below Reports as per HPI and Reports no additional complaints GI Reports no additional complaints Reports no additional complaints Office Procedures Endometrial Biopsy Details: The patient was counseled regarding the indication and benefits of endometrial sampling to rule out endometrial pathology including not limited to endometrial hyperplasia or endometrial cancer and others; The alternatives (Either do nothing vs. hysteroscopy D&C) & the risks were discussed with the patient including but not limited: pain, uterine perforation, bleeding, infection, possible injury to bladder, bowel, ureter, possible need for blood transfusion with all its possible risks. The patient verbalized understanding all questions answered and signed consent. Urine test done in the office was negative The patient was placed into the dorsal lithotomy position; a speculum was inserted in the vagina. Using aseptic technique for the procedure, the cervix was cleansed with Betadine. The anterior lip of the cervix was grasped with a single tooth tenaculum. The uterus was sounded to 7 cm with a 4 mm Pipelle was used. Tissues samples were obtained and placed in formalin, in a patient labeled container and sent to the pathology department. At the end of the procedure, there was minimal bleeding noted The patient tolerated the procedure well and was discharged in good condition with the following instructions: Nothing in the vagina until the bleeding stops. No sex until the bleeding stops, to call if any of the following occurs: fever (>100.4), flu-like symptoms, abdominal pain, heavy bleeding, four smelling vaginal discharge. The patient was instructed to schedule a Follow up appointment in 2 weeks to discuss pathology results of the biopsy and treatment options. This note was generated with a voice recognition program. Some errors may have been overlooked during the review of this note. Sometimes these errors may affect the content or meaning of a given sentence. 43957-Akrberzconi Biopsy Assessment & Plan Assessment & Plan (1) Abnormal uterine bleeding (AUB): Comment: History of PCOS Code(s): N93.9 - Abnormal uterine and vaginal bleeding, unspecified Category: Medical Plan: EMB done, see procedure note Orders: Orders AMB Endometrial Biopsy Today N93.9 - Abnormal uterine and vaginal bleeding, unspecified Coding Level of Care Code Procedure Only Diagnoses Abnormal uterine bleeding (AUB) N93.9 CPT Codes Endometrial Biopsy - CPT: 66966-Dcodyktclge Biopsy ([id number])
--- OUTSIDE RECORDS SUMMARY | 2024-11-30 09:19 | XMS_ITS | Clinical Summary ---
Author Organization [facility] Address [address] [place] [id number] Phone Care Team Providers Care Storage Battery Inspector Name Role Phone Belkis Childers IZAIAH Primary Care Provider [phone] Immunizations Immunization Administration Dates Next Due DTP [...] history of Deafness, Family history of Sudden /MD under age 55 Paternal Grandmother Paterna l [...] of 2 - 13+ 2-dose series) 02/22/2004 COVID-19 Vaccine (1 - 2024- season) 2024 Influenza Vaccines (#1) 2024 HIB Vaccines Completed 06/25/1992, 10/24, 1991, [...] age to complete this topic Care Teams Storage Battery Inspector Relationship Specialty Start Date End Date Belkis Childers NP PCP - General 01/02/17
== END 2024-11-30 09:28 | disposition home or self-care (01) ==
LOC: HO.HWS 09:03
PROVIDERS: PCP Hospitalist; Visit Provider Obstetrics & Gynecology
DX: N93.9 Abnormal uterine and vaginal bleeding, unspecified (principal)
CPT/HCPCS: 58100

== ENCOUNTER 2024-12-20 14:49 | Outpatient (REF) | payer OTHER, SELFPAY ==
--- NOTE | ~2024-12-20 | US_ITS ---
CLINICAL HISTORY: N93.9 - Abnormal uterine and vaginal bleeding, unspecified Transabdominal and transvaginal pelvic ultrasound Comparison: None Findings: Uterus 7.7 x 3.8 x 5.4 cm. Endometrium 7 mm. No significant free fluid. Right ovary 3.4 x 2.2 x 1.9 cm. No significant focal abnormality. Left ovary 4.3 x 1.9 x 1.9 cm. 2.2 cm paraovarian cyst. Impression: 2.2 cm left paraovarian cyst Otherwise unremarkable This document has been electronically signed by: Too Cha MD on 12/20/2024 20:27:59
--- OUTSIDE RECORDS SUMMARY | 2024-12-20 15:39 | XMS_ITS | Clinical Summary ---
Author Organization [facility] Address [address] [place] [address] Phone Care Team Providers Care Nuclear Spectroscopist Name Role Phone Belkis Childers IZAIAH Primary Care Provider [phone] Immunizations Immunization Administration Dates Next Due DTP [...] history of Deafness, Family history of Sudden /OK under age 55 Paternal Grandmother Paterna l [...] age to complete this topic Care Teams Nuclear Spectroscopist Relationship Specialty Start Date End Date Belkis Childers NP PCP - General 01/02/17
== END 2024-12-20 14:50 | disposition home or self-care (01) ==
LOC: HO.US 14:49
PROVIDERS: PCP Hospitalist; Visit Provider Obstetrics & Gynecology
DX: N93.9 Abnormal uterine and vaginal bleeding, unspecified (principal)
CPT/HCPCS: 76830; 76856

== ENCOUNTER → 2024-12-20 14:56 | Outpatient (BNV) | payer OTHER, SELFPAY | PROVIDERS: PCP Hospitalist; Visit Provider Radiology Diagnostic Radiology | DX: N93.9 Abnormal uterine and vaginal bleeding, unspecified (principal) | CPT/HCPCS: 76830; 76856 ==

== ENCOUNTER 2024-12-27 15:25 | Outpatient (AMB) | payer OTHER, SELFPAY ==
--- NOTE | 2024-12-27 15:25 | A.OFFVIS_ITS ---
Intake Visit Reasons: EMB results /ultrasound follow up Allergies chlorpheniramine (From TYLENOL ALLERGY SINUS CON PACK) Allergy (Unknown, Verified 11/30/24 09:09) HIVES diphenhydramine (From TYLENOL ALLERGY SINUS CON PACK) Allergy (Unknown, Verified 11/30/24 09:09) HIVES From TYLENOL ALLERGY SINUS CON PACK Allergy (Unknown, Uncoded 11/16/24 08:10) HIVES Tylenol Sinus Allergy (Unknown, Uncoded 11/16/24 08:10) hives HPI Comments Details: The patient schedule a telehealth visit for follow-up to discuss the results of her abnormal uterine bleeding workup and options of treatment. The following workup was done.: H&H= 12.8/37.5 TSH, hCG, GC and chlamydia were negative. test T/F, 17 OH progesterone nwl Co testing was done was negative. Endometrial pathology showed the following: Endometrium, biopsy: Mixed pattern late secretory and inactive endometrium with extensive breakdown; no atypia identified. Pelvic ultrasound showed the following: Findings: Uterus 7.7 x 3.8 x 5.4 cm. Endometrium 7 mm. No significant free fluid. Right ovary 3.4 x 2.2 x 1.9 cm. No significant focal abnormality. Left ovary 4.3 x 1.9 x 1.9 cm. 2.2 cm paraovarian cyst. 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 Gender identity: Female Cognitive needs: No Hearing needs: No Vision needs: Yes Female Reproductive History Menstrual Age of Menarche: 12 Review of Systems Const All systems reviewed & are unremarkable except as noted in HPI and below Reports as per HPI and Reports no additional complaints GI Reports no additional complaints Reports no additional complaints Telehealth Telehealth Telehealth Platform: Telephone Location of provider rendering services: practice address Location of patient: address on file Patient Identification confirmed using: Name, : Yes Telehealth method: video Patient verbally consented to treatment: Yes Patient verbally consented to billing insurance company: Yes Patient informed of any privacy concerns related to visit: Yes Minutes spent on Phone/Video with Pt.: 8 Assessment & Plan Assessment & Plan (1) Abnormal uterine bleeding (AUB): Code(s): N93.9 - Abnormal uterine and vaginal bleeding, unspecified Category: Medical Plan: Discussed with the patient the results of the work up done and options of treatment including Lysteda, control pills, Mirena IUD, endometrial ablation and hysterectomy. All pros, cons, risks and benefits if each option was discussed with the patient and the patient decided to go ahead with Mirena IUD so a more detailed discussion about it was conducted including mechanism of action, risks (uterine perforation, infection, injury to bladder, bowel, displacement, and others) benefits (hypo menorrhea, amenorrhea, ...). GC/CT were taken and negative and the patient was instructed to schedule Mirena IUD insertion on day 1-5 of next cycle . All questions answered, the patient verbalized understanding I spent a total of 20 minutes reviewing the chart, talking to the patient via video and documenting in the medical record. Coding Level of Care Code Tele Est Pt Level 3 (60289) Diagnoses Abnormal uterine bleeding (AUB) N93.9
--- OUTSIDE RECORDS SUMMARY | 2024-12-27 15:51 | XMS_ITS | Clinical Summary ---
Author Organization [facility] Address [address] [place] [id number] Phone Care Team Providers Care Dealer Compliance Representative Name Role Phone Belkis Childers IZAIAH Primary Care Provider [phone] Immunizations Immunization Administration Dates Next Due DTP [...] history of Deafness, Family history of Sudden /NE under age 55 Paternal Grandmother Paterna l [...] age to complete this topic Care Teams Dealer Compliance Representative Relationship Specialty Start Date End Date Belkis Childers NP PCP - General 01/02/17
== END 2024-12-27 15:59 | disposition home or self-care (01) ==
LOC: HO.HWS 15:25
PROVIDERS: PCP Hospitalist; Visit Provider Obstetrics & Gynecology
DX: N93.9 Abnormal uterine and vaginal bleeding, unspecified (principal)
CPT/HCPCS: 99213

== ENCOUNTER 2025-01-26 08:24 | Outpatient (REF) | payer BC, SELFPAY ==
[2025-01-26 16:07] LABS: CT PCR NOT DETECTED (Not Detect.); NG PCR NOT DETECTED (Not Detect.)
== END 2025-01-26 08:25 | disposition home or self-care (01) ==
LOC: HO.LNP 08:24
PROVIDERS: PCP Hospitalist; Visit Provider Obstetrics & Gynecology
DX: Z30.430 Encounter for insertion of intrauterine contraceptive device (principal)
CPT/HCPCS: 58300; 81025; 87491; 87591; J7298

== ENCOUNTER 2025-01-26 08:24 | Outpatient (AMB) | payer BC, SELFPAY ==
--- NOTE | 2025-01-26 08:47 | MHC.OFFVIS ---
Vital Signs 01/26/25 09:01 Height 5 ft Weight 200 lb BMI 39.1 Intake Visit Reasons: IUD insert Women'S Apparel Salesperson Required: No Information Interpreted: non-clinical & clinical Certified Dialysis Technician: Certified Dialysis Technician Present (Katlyn CERVANTES) Accompanied by: Self / Same As Patient Allergies chlorpheniramine (From TYLENOL ALLERGY SINUS CON PACK) Allergy (Unknown, Verified 01/26/25 09:02) HIVES diphenhydramine (From TYLENOL ALLERGY SINUS CON PACK) Allergy (Unknown, Verified 01/26/25 09:02) HIVES From TYLENOL ALLERGY SINUS CON PACK Allergy (Unknown, Uncoded 01/26/25 09:02) HIVES Tylenol Sinus Allergy (Unknown, Uncoded 01/26/25 09:02) hives HPI Comments Details: Presenting for Mirena IUD insertion [facility] Medical History Obesity, Class III, BMI 40-49.9 (morbid obesity) Pure hypercholesterolemia Surgical History H/O LEEP Family History Paternal Aunt Cervical cancer Social History Household Members: Spouse and Children Housing: House Alcohol intake: current Alcohol intake frequency: holidays/special occasions only Patient Tobacco Use Status: Never used Tobacco e-Cigarette/Vaping Use: Never Used service: No Current occupational status: employed Sexual 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/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 Gender identity: Female Cognitive needs: No Hearing needs: No Vision needs: Yes Female Reproductive History Menstrual Age of Menarche: 12 Review of Systems Const All systems reviewed & are unremarkable except as noted in HPI and below Reports as per HPI and Reports no additional complaints GI Reports no additional complaints Reports no additional complaints Physical Exam Vital Signs: BMI result Body Mass Index 39.1 Office Procedures IUD Insert/Removal Details Details: The patient is presenting for Mirena IUD insertion Urine test was done in the office and was negative; GC/CT taken All the contraindications were excluded. The following possible complications were discussed with the patient: Intrauterine , Ectopic , Sepsis, Pelvic Infection, Irregular Bleeding and Amenorrhea, Perforation, Expulsion, Ovarian Cysts, Breast Cancer, The following adverse effects were discussed with the patient: alteration of menstrual bleeding pattern, including: unscheduled uterine bleeding decreased uterine bleeding increased scheduled uterine bleeding female genital tract bleeding ,amenorrhea , genital discharge , vulvovaginitis , breast pain , benign ovarian cyst and associated complications , dysmenorrhea , Gastrointestinal disorders abdominal/pelvic pain, headache/migraine , back pain , acne , depression Alternative options were discussed with the patient including but not limited: control pills, patch, NuvaRing, Depo-medroxyprogesterone acetate, Nexplanon, copper IUD, sterilization, vasectomy, others The procedure was explained in detail to patient , at the end patient signed the informed consent obtained. A no touch technique was used throughout the procedure. A speculum was placed into vagina and cervix was cleaned with betadine). A tenaculum was placed. A plastic sound was advanced through the external and internal os until it reached the fundus of the uterus, the depth was 8 cm. The sound was then withdrawn. The IUD was loaded in a sterile manner and advanced into position. The string was visualized and cut to 3 cm. Tenaculum site hemostatic. All instruments removed from vagina. Patient tolerated the procedure well. NO complications were noted. Patient was instructed to call for fever over 100.4, significant pain unrelieved by Motrin, IUD expulsion, heavy bleeding, or abnormal discharge. In addition, the following clinical considerations were discussed with the patient to call for removal: A stroke or heart attack ,Very severe or migraine headaches ,Unexplained fever ,Yellowing of the skin or whites of the eyes, as these may be signs of serious liver problems , or suspected , Pelvic pain or pain during sex ,HIV positive seroconversion in herself or her partner , Possible exposure to sexually transmitted infections Unusual vaginal discharge or genital sores , severe vaginal bleeding or bleeding that lasts a long time, or if she misses a menstrual period, Inability to feel Mirena's threads Counseled the patient that the IUD does not protect against STI's, recommended use of condoms for the first 7 days post insertion and explained to the patient that condoms are recommended for patients at risk for sexually transmitted infections. Informed the patient that Mirena IUD is FDA approved for 8 years for contraception for 5 years for the treatment of heavy menses Instructed the patient to schedule a Follow up appointment in 4 to 6 weeks following insertion. This note was generated with a voice recognition program. Some errors may have been overlooked during the review of this note. Sometimes these errors may affect the content or meaning of a given sentence. 66955-NLM Insertion Procedure code (CPT) selection complete Office Meds Mirena 21 mcg/24 hr (up to 8 years) 52 mg intrauterine device Performing Provider: Mirza Pemberton MD Performing Location[place] [facility] Documented (not given) by: Mirza Pemberton MD on 01/26/25 09:19 Dose Route Admin Location Dispensed Lot Number Expiration Date [facility] Film Sound Coordinator 1 device intrauterine ea Total Dispensed Waste n/a n/a Assessment & Plan Assessment & Plan (1) Encounter for insertion of Mirena IUD: Code(s): Z30.430 - Encounter for insertion of intrauterine contraceptive device Category: Medical Plan: Mirena IUD inserted, see procedure note Orders: Orders AMB IUD Insertion/Removal - Practice Supplied Today Z30.430 - Encounter for insertion of intrauterine contraceptive device Medications: New Mirena (levonorgestrel) 1 device intrauterine ONCE 1 ea 0RF AUB NS Z30.430 - Encounter for insertion of intrauterine contraceptive device Coding Level of Care Code Procedure Only Diagnoses Encounter for insertion of Mirena IUD Z30.430 CPT Codes Details - CPT: 78430-SHG Insertion ([id number])
[2025-01-26 09:01] VITALS: BMI 39.1
== END 2025-01-26 09:25 | disposition home or self-care (01) ==
LOC: HO.HWS 08:24
PROVIDERS: PCP Hospitalist; Visit Provider Obstetrics & Gynecology
DX: Z30.430 Encounter for insertion of intrauterine contraceptive device (principal); Z32.02 Encounter for pregnancy test, result negative
CPT/HCPCS: 58300